=== PATIENT | female | born 1980 | race Caucasian/White ===

== ENCOUNTER 2018-03-17 13:59 | Emergency (ER) | payer MEDICAID ==
[~2018-03-17] VITALS: Ht 162.6 cm; Wt 128.8 kg
[2018-03-17 14:06] VITALS: BP_SYST 165
[2018-03-17 14:42] LABS: BILIRUBIN,URINE NEGATIVE (NEGATIVE); CLARITY/URINE SL HAZY (CLEAR); COLOR,URINE YELLOW (YELLOW); GLUCOSE,URINE NEGATIVE (NEGATIVE); KETONES,URINE NEGATIVE (NEGATIVE); LEUKOCYTE ESTERASE ,URINE NEGATIVE (NEGATIVE); NITRITE, URINE NEGATIVE (NEGATIVE); PROTEIN URINE 1+ (NEGATIVE); UROBILINOGEN,URINE 0.2 (0.2-1.0)
[2018-03-17 14:44] LABS: BLOOD, URINE TRACE (NEGATIVE)
--- NOTE | 2018-03-17 14:55 | NUR ---
Pt c/o lower back pain that radiates down LLE x 2 weeks. Pt states that she went to the hospital a week ago for the same problem, but they only took a urine sample and didn't tx her pain. Pt states that she took Ibuprofen 800 mg about 1.5 hours ago with no relief.
--- NOTE | 2018-03-17 14:55 | NUR ---
Patient to ER bed 03 to gown for evaluation. Side rails up.
[2018-03-17 14:58] LABS: BACTERIA,URINE RARE /HPF (None Seen); MUCUS,URINE None Seen /LPF (None Seen); WBC,URINE 0-3 /HPF (0-3); YEAST,URINE None Seen /HPF (None Seen)
--- NOTE | 2018-03-17 15:05 | NUR ---
Dr. Akhtar at bedside.
[2018-03-17] MEDS ORDERED: KETOROLAC TROMETHAMINE 60 MG/2 ML VIAL IM ONE (15:15)
[2018-03-17 15:40] VITALS: BP_SYST 148
--- NOTE | 2018-03-17 15:40 | NUR ---
Patient given written and verbal discharge instructions and verbalizes understanding. ER MD discussed with patient the results and treatment provided. Patient in stable condition. ID arm band removed. Rx of Flexeril given. Patient educated on pain management and to follow up with PMD. Pain Scale 3/10. Opportunity for questions provided and answered. Medication side effect fact sheet provided.
== END 2018-03-17 15:40 | disposition home or self-care (01) ==
LOC: SED 14:03
DX: S39.012A Strain of muscle, fascia and tendon of lower back, initial encounter (principal); R31.9 Hematuria, unspecified; X50.0XXA Overexertion from strenuous movement or load, initial encounter; Y93.89 Activity, other specified; Y92.89 Other specified places as the place of occurrence of the external cause; Y99.8 Other external cause status
CPT/HCPCS: 81000; 81025; 96372; 99283; J1885